=== PATIENT | male | born 1975 | race Native Hawaiian/Other Pacific Islander ===

== ENCOUNTER 2022-11-08 07:42 | Emergency (ER) | payer OTHER ==
[~2022-11-08] VITALS: Ht 193 cm; Wt 102.1 kg
[2022-11-08 07:52] VITALS: TEMP 98.1
[2022-11-08 08:51] LABS: PLATELET COUNT 210 K/uL (142-355)
[2022-11-08 08:52] LABS: POTASSIUM 3.5 mmol/L (3.6-5.2)
[2022-11-08 10:45] VITALS: BP 162/98
== END 2022-11-08 10:45 | disposition home or self-care (01) ==
LOC: ED 07:42
PROVIDERS: Internal Medicine
DX: K80.80 Other cholelithiasis without obstruction (principal)
CPT/HCPCS: 36415; 80053; 85027; 96374; 99284; J2270; J2405